=== PATIENT | male | born 1980 | race Caucasian/White ===

== ENCOUNTER 2022-11-15 14:37 | Emergency (ER) | payer OTHER, BC, SELFPAY ==
[2022-11-15] VITALS (8 sets, daily range): BP systolic 114–170; BP diastolic 64–116; PULSE 96–146; RESP 14–20; TEMP 36.6; O2SAT 50–98; BMI 31.7
[2022-11-15] MEDS: Etomidate 20 MG/10 ML Vial 30 MG IV (14:43)
[2022-11-15] MEDS: Rocuronium Bromide 50 MG/5 ML Vial 100 MG IV (14:43)
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
[2022-11-15] MEDS: Propofol 10MG/Ml 1,000 MG/100 ML Bottle 5.7 MG CONT INF (14:50)
[2022-11-15] MEDS: 0.9% Normal Saline 1,000 ML 999 ML IV (14:52)
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
--- NOTE | 2022-11-15 14:57 | NURSING ---
NO OLD EKGS
[2022-11-15 15:07] LABS: Bacteria 0 SEEN /hpf (None Seen); Mucous, Urine 0 SEEN /hpf (<or=2+); Red Blood Cells-Urine 0 SEEN /hpf (0-5); Squamous Epithelial Cells - UA 0 SEEN /hpf (0-5); White Blood Cells 0 SEEN /hpf (0-5)
[2022-11-15 15:11] LABS: Color, Urine Yellow (Yellow); Glucose, Dipstick Normal (Normal); Ketone-Dipstick 5 mg/dl (Negative); Leukocyte Esterase-Dipstick Negative /ul (Negative); Nitrite-Dipstick Negative (Negative); Occult Blood-Urine 50 /ul (Negative); Protein-Dipstick 30 mg/dl (Negative); Specific Gravity, Urine 1.025 (1.002-1.030); Urine Bilirubin Dipstick Negative (Negative); Urine Clarity Clear (Clear); Urine Urobilinogen Normal (Normal)
[2022-11-15 15:12] LABS: Absolute Lymphocyte Count 4.67 X10^3/uL (0.83-4.51); Absolute Neutrophil Count 7.7 X10^3/uL (2.0-7.7); Basophil# 0.11 X10^3/uL; Basophil% 0.8 % (0-1); Eosinophils% 3.4 % (0-5); Hematocrit 47.9 % (40-54); Hemoglobin 15.2 g/dL (13.0-16.5); Lymphocyte # 4.67 X10^3/ul (0.83-4.51); Lymphocyte % 31.9 % (19-41); Mean Corp Hgb Conc 31.7 g/dL (32-36); Mean Corpuscular Hgb 30.8 pg (27.0-32.0); Mean Corpuscular Volume 97.2 fL (80-94); Monocyte# 1.17 X10^3/uL; NRBC Flagged by Analyzer 0 % (0-5); Neutrophil # 7.66 X10^3/uL (2.7-7.7); Neutrophil % 52.2 % (47-70); Platelet Count 309 K/mm3 (150-450); RBC Distribution Width CV 11.9 % (11.6-14.6); Red Blood Count 4.93 M/mm3 (4.6-6.2); White Blood Count 14.7 K/mm3 (4.4-11.0)
[2022-11-15 15:17] LABS: Prothrombin Time (Protime)PT. 13.4 SECONDS (11.7-14.9)
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
[2022-11-15 15:20] LABS: Partial Thromboplast Time 27.1 Seconds (24.1-36.2)
--- NOTE | 2022-11-15 15:30 | CM.ED ---
Social Work SW introduced self and role to patient's family. Patient's , daughter, and parents present initially. SW provided support and water to family. Additional children of the patient came to bedside. Patient's family took turns at bedside and tearful. SW took some family members to private waiting in triage. Patient had many family members present, all immediate family. Patient to be transferred via life flight. SW provided emotional support as needed. Cara Carney RN ACLS, RETAIL LINK ANALYST
[2022-11-15] MEDS: Midazolam 2 MG/2 ML Syringe 9.5 MG IV (15:32)
[2022-11-15 15:35] LABS: CPK Total, Creatine Kinase 254 U/L (39-308); Triglycerides 165 mg/dL
[2022-11-15 15:40] LABS: Amphetamine Urine VISTA NEGATIVE (<1000 ng/mL); Barbiturate Urine VISTA NEGATIVE (< 200 ng/mL); Benzodiazepine Urine VISTA POSITIVE (< 200 ng/mL); Cocaine Urine VISTA NEGATIVE (< 300 ng/mL); Ecstacy Urine VISTA NEGATIVE (< 500 ng/mL); Methadone Urine VISTA NEGATIVE (< 300 ng/mL); PCP Urine VISTA NEGATIVE (< 25 ng/mL); THC Urine VISTA NEGATIVE (< 50 ng/mL); Vista UDS pH Range 5
[2022-11-15 15:47] LABS: AST(SGOT) 24 U/L (15-37); Alanine Aminotransfer ALT/SGPT 28 U/L (16-61); Albumin, Serum 4.5 g/dL (3.2-5.0); Alkaline Phosphatase 80 U/L (45-117); Anion Gap 24 (5-15); BUN 9 mg/dL (7-18); BUN/Creat Ratio 5.7 RATIO (10-20); Bilirubin, Direct 0.12 mg/dL (0.00-0.30); Calcium,Total 9.1 mg/dL (8.5-10.1); Chloride 101 mmol/L (98-107); Creatinine, Serum 1.59 mg/dL (0.70-1.30); EST Glomerular Filtration Rate 50 mL/min (>60); Est Glom Filt Rate - Afr Amer 61 mL/min (>60); Estimated Creatinine Clearance 57.36 ml/min; Globulin 3.3 g/dL (2.2-4.2); Glucose 148 mg/dL (74-106); Potassium 3.9 mmol/L (3.5-5.1); Protein, Total 7.8 g/dL (6.4-8.2); Sodium Level 135 mmol/L (136-145)
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
[2022-11-15 15:54] LABS: Alcohol, Blood (Medical)-Serum < 3.0 mg/dL
[2022-11-15 15:58] LABS: Lactic Acid 8.8 mmol/L (0.4-1.9)
[2022-11-15] MEDS: Propofol 200 MG/20 ML Vial 100 MG IV BOLUS (16:03)
[2022-11-15] MEDS: Midazolam 5 MG/ML Syringe 10 MG IV (16:07)
[2022-11-15 19:15] LABS: Reflex Lactate? Y
== END 2022-11-15 16:29 | disposition short-term general hospital (02) ==
PROVIDERS: Emergency Provider Emergency Medicine; Visit Provider Emergency Medicine
DX: S32.049A Unspecified fracture of fourth lumbar vertebra, initial encounter for closed fracture (principal); F17.290 Nicotine dependence, other tobacco product, uncomplicated; V89.2XXA Person injured in unspecified motor-vehicle accident, traffic, initial encounter
CPT/HCPCS: 31500; 51702; 70450; 71260; 72125; 73030; 74177; 80048; 80076; 80307; 81001; 82077; 82550; 83605; 84478; 85025; 85610; 85730; 93005; 94002; 96374; 96375; 96376; 99252; 99285; J7030; Q9967; A4216; G0463